=== PATIENT | male | born 1945 | race Two or more races ===

== ENCOUNTER 2024-07-25 20:21 | Inpatient (IN) | payer MEDICARE, OTHER ==
[~2024-07-25] VITALS: Ht 172.7 cm; Wt 58.5 kg
[2024-07-25] MEDS ORDERED: LISI40TA9 PO (22:54)
[2024-07-26 01:05] LABS: COVID AG,FIA SOURCE NASAL SWAB
[2024-07-26] MEDS ORDERED: HALOPERIDOL 5 MG TABLET PO PRN (01:15)
[2024-07-26] MEDS ORDERED: LORazepam 2 MG TABLET PO PRN (01:15)
[2024-07-26 01:17] LABS: BASOPHILS % (AUTO) 0.5 % (0.0-2.0); EOSINOPHILS % (AUTO) 8.2 % (1.0-6.0); HEMATOCRIT 34.8 % (41-53); HEMOGLOBIN 11.7 g/dL (13.5-17.5); LYMPHOCYTES # (AUTO) 0.8 K/uL (1.0-4.8); LYMPHOCYTES % (AUTO) 13.9 % (22.0-44.0); MEAN CORPUSCULAR HEMOGLOBIN 32.8 pg (26.0-34.0); MEAN CORPUSCULAR HGB CONC 33.6 G/dL (31.0-37.0); MEAN CORPUSCULAR VOLUME 98 fL (80-100); MONOCYTES # (AUTO) 0.4 K/uL (0.1-1.0); MONOCYTES % (AUTO) 7.7 % (2.0-9.0); NEUTROPHILS # (AUTO) 3.9 K/uL (1.8-7.7); NEUTROPHILS % (AUTO) 69.7 % (40.0-70.0); PLATELET COUNT (AUTO) 150 K/uL (150-450); RED BLOOD CELL COUNT(AUTO) 3.57 MIL/uL (4.50-5.90); RED CELL DISTRIBUTION WIDTH 15.2 % (11.5-14.5); WHITE BLOOD COUNT (AUTO) 5.5 K/uL (4.5-11.0)
[2024-07-26 01:25] LABS: ANION GAP 9 mmol/L (8-16); CALCIUM, TOTAL 9.6 mg/dL (8.8-10.5); CARBON DIOXIDE 27 mmol/L (22-29); CHLORIDE 105 mmol/L (98-107); CREATININE 1.24 mg/dL (0.60-1.30); GLOMERULAR FILTR. RATE CALC 56 mL/min (>60); GLUCOSE,RANDOM 107 mg/dL (70-110); SODIUM SERUM 141 mmol/L (136-145); UREA NITROGEN, BLOOD 50 mg/dL (7-18)
[2024-07-26 01:31] LABS: SARS-COV2 (COVID) ANTIGEN,FIA Negative (Negative)
[2024-07-26 01:39] LABS: ALCOHOL, BLOOD (SERUM) < 3 mg/dL (0-10)
[2024-07-26 03:17] LABS: ALCOHOL, URINE DRUG SCREEN NEGATIVE (NEGATIVE); AMPHET/METH SCREEN,URINE NEGATIVE (NEGATIVE); BARBITURATE SCREEN, URINE NEGATIVE (NEGATIVE); BENZODIAZEPINES SCREEN,URINE NEGATIVE (NEGATIVE); CANNABINOID SCREEN,URINE NEGATIVE (NEGATIVE); COCAINE SCREEN,URINE NEGATIVE (NEGATIVE); METHADONE SCREEN, URINE NEGATIVE (NEGATIVE); OPIATE SCREEN,URINE NEGATIVE (NEGATIVE); PHENCYCLIDINE SCREEN,URINE NEGATIVE (NEGATIVE)
[2024-07-26 03:18] LABS: APPEARANCE,URINE CLEAR (CLEAR); BILIRUBIN,URINE NEGATIVE (NEGATIVE); COLOR,URINE COLORLESS (YELLOW); GLUCOSE, URINE (UA) NEGATIVE (NEGATIVE); KETONES,URINE NEGATIVE (NEGATIVE); LEUKOCYTE ESTERASE ,URINE NEGATIVE (NEGATIVE); NITRATE,URINE NEGATIVE (NEGATIVE); OCCULT BLOOD,URINE NEGATIVE (NEGATIVE); PH,URINE 5.5 (5.0-8.0); PROTEIN,URINE 30-70 mg/dL (NEGATIVE); UROBILINOGEN,URINE <=1.0 mg/dL (<=1.0)
[2024-07-26 03:26] LABS: PH,URINE DRUG SCREEN 5.5 (5.0-8.0)
[2024-07-26 04:29] VITALS: O2SAT 97
[2024-07-26 07:29] VITALS: BP 157/55; PULSE 59; RESP 16; TEMP 97.8; O2SAT 98
[2024-07-26] MEDS: LISINOPRIL 10 MG TABLET PO SCH (08:00)
[2024-07-26 08:20] VITALS: BP 159/54; PULSE 58; RESP 18; TEMP 96.9; O2SAT 99
[2024-07-26 20:22] VITALS: BP 158/48; PULSE 60; RESP 17; TEMP 97.7; O2SAT 97
[2024-07-26] MEDS: ZOLPIDEM TARTRATE 10 MG TABLET PO PRN (23:24)
[2024-07-27 08:30] VITALS: BP 127/49; PULSE 54; RESP 16; TEMP 97.6; O2SAT 99
[2024-07-27] MEDS: DOCUSATE SODIUM 100 MG CAPSULE PO PRN (10:00)
[2024-07-27] MEDS ORDERED: GuaiFENesin/D-METHORPHAN [SUGAR-FREE] 200-20MG/10 ML SYRUP UDCUP PO PRN (10:00)
[2024-07-27] MEDS ORDERED: ONDANSETRON 4 MG TABLET PO PRN (10:00)
[2024-07-27] MEDS ORDERED: NICOTINE 14 MG/24 HOUR PATCH TD PRN (10:00)
[2024-07-27] MEDS ORDERED: MAGNESIUM HYDROXIDE SUSPENSION 30 ML UDCUP PO PRN (10:00)
[2024-07-27] MEDS ORDERED: MAG HYDROX/ALUMINUM HYD/SIMETH ES 30 ML SUSPENSION UDCUP PO PRN (10:00)
[2024-07-27] MEDS ORDERED: CloNIDine HCL 0.1 MG TABLET PO PRN (10:00)
[2024-07-27] MEDS ORDERED: ALBUTEROL SULFATE HFA 90 MCG/PUFF 8 GM INHALER IH PRN (10:00)
[2024-07-27] MEDS ORDERED: PETROLATUM,WHITE 28 GM JELLY TP PRN (10:00)
[2024-07-27] MEDS ORDERED: ACETAMINOPHEN 325 MG TABLET PO PRN (10:00)
[2024-07-27] MEDS ORDERED: LOPERAMIDE HCL 2 MG CAPSULE PO PRN (10:00)
[2024-07-27] MEDS: IBUPROFEN 400 MG TABLET PO PRN (10:07)
[2024-07-27 20:56] VITALS: BP 137/58; PULSE 60; RESP 18; TEMP 97.3; O2SAT 98
[2024-07-28 09:11] LABS: HEMOGLOBIN A1C 5.6 % (3.8-5.6)
[2024-07-28 09:21] LABS: THYROID STIMULATING HORMONE 1.4 uIU/mL (0.36-3.74)
[2024-07-28 09:35] VITALS: BP 118/65; PULSE 61; RESP 15; TEMP 96.8; O2SAT 97
== END 2024-07-28 18:41 | disposition home or self-care (01) | DRG 880 ==
LOC: EMS 20:21 → UNDOADMIN 07-26 02:26 → B2X 07-26 02:26
PROVIDERS: ADMIT Psychiatry & Neurology Child & Adolescent Psychiatry; ATTEND Psychiatry & Neurology Child & Adolescent Psychiatry
PROC: GZ56ZZZ Individual Psychotherapy, Supportive (ICD-10-PCS; principal; 2024-07-26)
DX: R45.851 Suicidal ideations (principal); D64.9 Anemia, unspecified; I10 Essential (primary) hypertension; Z20.822 Contact with and (suspected) exposure to COVID-19; F22 Delusional disorders; Z95.1 Presence of aortocoronary bypass graft; Z86.79 Personal history of other diseases of the circulatory system; Z85.118 Personal history of other malignant neoplasm of bronchus and lung
CPT/HCPCS: 72100; 72220; 80048; 80061; 80307; 81003; 83036; 84443; 85025; 87081; 99285; G0480